=== PATIENT | female | born 1980 | race Caucasian/White ===

== ENCOUNTER 2022-06-09 08:31 | Outpatient (CLI) | payer OTHER, SELFPAY ==
--- NOTE | ~2022-06-09 | MM_ITS ---
EXAMINATION: MM screening ana BI w chinmay HISTORY: Screening mammogram TECHNIQUE: Craniocaudal and mediolateral oblique 3-D tomosynthesis images were obtained and synthetic 2-D images were generated. CAD analysis was submitted and interpreted. COMPARISON: No prior mammogram is available for comparison at this institution. BREAST PARENCHYMAL COMPOSITION: The breasts are heterogeneously dense, which may obscure small masses . FINDINGS: RIGHT BREAST: There is a possible mass in the anterior third outer breast best appreciated 2 cm from the nipple on the craniocaudal view. LEFT BREAST: There are possible masses in the anterior middle third of the slightly inner breast. IMPRESSION: 1. Bilateral breast findings as described above which may represent the patient's baseline however no comparison is currently available. 2. Comparison with prior mammograms is necessary. BI-RADS Category 0: Incomplete: Needs comparison with prior mammograms. Reviewed, dictated and finalized at location A. ING MANAGER IMPRESSION: 1. Bilateral breast findings as described above which may represent the patient 's baseline however no comparison is currently available. 2. Comparison with prior mammograms is necessary. BI-RADS Category 0: Incomplete: Needs comparison with prior mammograms.
== END 2022-06-09 08:32 | disposition home or self-care (01) ==
LOC: ANHIMG 08:38
PROVIDERS: Visit Provider Obstetrics & Gynecology
DX: Z12.31 Encounter for screening mammogram for malignant neoplasm of breast (principal); R92.8 Other abnormal and inconclusive findings on diagnostic imaging of breast
CPT/HCPCS: 77063; 77067

== ENCOUNTER 2022-07-15 12:58 | Outpatient (CLI) | payer BC, SELFPAY ==
--- NOTE | ~2022-07-15 | MMUS_ITS ---
EXAMINATION: MM diagnostic ana BI w chinmay, US breast BI complete HISTORY: Possible mass in the anterior middle third of slightly inner left breast and possible right breast mass in anterior third of outer breast 2 cm from nipple on CC screening view of 06/09/2022 TECHNIQUE: Additional 3-D tomosynthesis images of both breasts were performed and synthetic 2-D image s were generated. CAD analysis was submitted and interpreted. High resolution complete bilateral verenice st ultrasound examination including all 4 quadrants and subareolar areas was performed. COMPARISON: 06/09/2022 bilateral screening mammogram 05/13/2018 bilateral screening mammogram FINDINGS: MAMMOGRAPHIC FINDINGS: No suspicious mass or architectural distortion is detected. ULTRASOUND: Right breast: 12:00 1 cm from nipple: 4.8 mm cyst Left breast: 1:00 1 cm from nipple: Parallel circumscribed 5.2 x 3.2 x 3.4 mm hypoechoic lesion without internal v ascularity or posterior shadowing, benign in appearance 3:00: Superficial probable 3 mm cyst 5:00: Septated 3.4 mm cyst 10:00 5 cm from nipple: 4 mm cyst 11:00: 7.3 x 6 mm cyst IMPRESSION: 1. Benign findings 2. Routine annual mammographic screening is recommended BI-RADS Category 2: Benign finding(s). Reviewed, dictated and finalized at location A. AY REPAIR SUPERVISOR IMPRESSION: 1. Benign findings 2. Routine annual mammographic screening is recommended BI-RADS Category 2: Benign finding(s).
== END 2022-07-15 12:59 | disposition home or self-care (01) ==
LOC: ANHIMG 13:00
PROVIDERS: PCP Obstetrics & Gynecology; Visit Provider Obstetrics & Gynecology
DX: R92.8 Other abnormal and inconclusive findings on diagnostic imaging of breast (principal)
CPT/HCPCS: 76641; 77062; 77066; G0279

== ENCOUNTER 2023-07-26 13:21 | Outpatient (CLI) | payer BC, SELFPAY ==
--- NOTE | ~2023-07-26 | MM_ITS ---
EXAMINATION: MM screening ana BI w chinmay HISTORY: Screening mammogram, family history of breast cancer in her mother. TECHNIQUE: Craniocaudal and mediolateral oblique 3-D tomosynthesis images were obtained and synthetic 2-D images were generated. CAD analysis was submitted and interpreted. COMPARISON: 07/15/2022, 06/09/2022, 05/13/2018 BREAST PARENCHYMAL COMPOSITION: The breasts are heterogeneously dense, which may obscure small masses . FINDINGS: No suspicious mass, calcification, or architectural distortion are identified in either diogenes ast to suggest malignancy. There has been no suspicious interval change. IMPRESSION: 1. No mammographic evidence of malignancy. 2. Recommend routine screening mammography in one year. BI-RADS Category 1: Negative Reviewed, dictated and finalized at location A. N SAW MECHANIC
== END 2023-07-26 13:22 | disposition home or self-care (01) ==
LOC: ANHIMG 13:22
PROVIDERS: PCP Obstetrics & Gynecology; Visit Provider Obstetrics & Gynecology
DX: Z12.31 Encounter for screening mammogram for malignant neoplasm of breast (principal)
CPT/HCPCS: 77063; 77067